=== PATIENT | male | born 1945 | race Caucasian/White ===

== ENCOUNTER 2017-11-01 13:52 | Emergency (ER) | payer MEDICARE, BC ==
[~2017-11-01] VITALS: Ht 177.8 cm; Wt 62.4 kg
[2017-11-01 13:55] VITALS: BP 166/78
[2017-11-01] MEDS ORDERED: DIPH,PERTUSS(ACELL),TET VAC/PF 0.5 ML IM-VACC ONE ×2 (14:42→15:00)
== END 2017-11-01 14:40 | disposition home or self-care (01) ==
LOC: ED 14:00
DX: S09.22XA Traumatic rupture of left ear drum, initial encounter (principal); X58.XXXA Exposure to other specified factors, initial encounter; Y93.89 Activity, other specified; Y92.89 Other specified places as the place of occurrence of the external cause; Y99.8 Other external cause status
CPT/HCPCS: 90471; 90715; 99283